=== PATIENT | male | born 1965 | race Caucasian/White ===

== ENCOUNTER 2019-05-28 10:29 | Observation (INO) | payer OTHER, SELFPAY ==
[2019-05-28] VITALS (7 sets, daily range): BP systolic 148–178; BP diastolic 86–111; PULSE 66–78; RESP 12–20; TEMP 36.8–36.9; O2SAT 96–99; BMI 35.5; BMI 34.9; BMI 35.0
--- NOTE | 2019-05-28 10:56 | CT_ITS ---
STUDY: CTA HEAD AND NECK WITH CONTRAST REASON FOR EXAM: Male, 53 years old. Vertigo nausea vomiting RADIATION DOSAGE (If Supplied By Facility): CTDIvol = ( 35.91 ) mGy, DLP = ( 1746.10 ) mGycm TECHNIQUE: CT angiography was performed with a multi-detector CT scanner. Data acquisition was obtained from the skull base through the vertex following intravenous administration of 100 IV Isovue 370. MIP images were reconstructed from the axial data set. Post-processing of the angiographic images was performed, with multiplanar reformation and 3D reconstruction. At the time of this study the venous structures are also enhancing which does cause some limitation to the study. Individualized dose optimization techniques were used for this CT. COMPARISON: No relevant priors. FINDINGS: Normal bilateral petrous carotid arteries. Normal right cavernous carotid artery with a normal supraclinoid bifurcation. There is calcified plaque formation of the left cavernous carotid artery, without a cross-sectional luminal stenosis. Normal right A1 segments of the anterior cerebral artery. Normal left A1 segments of the anterior cerebral artery. There is non-visualization of the anterior communicating artery (ACOM). Normal bilateral A2 segments of the anterior cerebral arteries. Normal right M1 and M2 segments of the middle cerebral arteries, with a normal M1 bifurcation. Normal left M1 and M2 segments of the middle cerebral arteries, with a normal M1 bifurcation. Normal right posterior communicating artery (PCOM). Normal left posterior communicating artery (PCOM). Normal bilateral vertebral arteries. There is a prominent confluence of the vertebral arteries. This measures up to 4.7 x 3.6 mm. Hhe visualized bilateral superior cerebellar (SCA) arteries are normal. Normal bilateral P1, P2 and visualized P3 segments of the posterior cerebral arteries. There is no demonstrated aneurysm of the [place]. There is no demonstrated abnormality of the visualized brain. AORTIC ARCH: Normal visualized aortic arch. Normal origins of the brachiocephalic, left common carotid, and left subclavian arteries. RIGHT CAROTID ARTERIES: Normal right common carotid artery (CCA). There is trace peripheral calcific plaque without stenosis. Normal origin of the right internal carotid (ICA) artery without a hemodynamically significant stenosis. Normal visualized cervical portion of the right internal carotid artery. Normal origin of the right external carotid artery (ECA). LEFT CAROTID ARTERIES: Normal left common carotid artery (CCA). There is trace peripheral plaque formation. Normal origin of the left internal carotid (ICA) artery without a hemodynamically significant stenosis. Normal visualized cervical portion of the left internal carotid artery. Normal origin of the left external carotid artery (ECA). VERTEBRAL ARTERIES: Normal bilateral vertebral arteries. The noncontrast CT portion of this exam shows no evidence of acute hemorrhage infarct or edema. There is minimal if any atrophy. There is a left side posterior parietal focus of superficial soft tissue mass with calcification which may represent a granuloma or partially calcified sebaceous cyst. There is one on the right measuring 1.2 x 0.9 cm. There is degenerative change in the cervical spine. There is facet arthropathy C2 C3 C3 C4 C4 C5 with mild to moderate neural foraminal narrowing. At the level of C5-C6 there is a broad disc osteophyte with moderate neural foramina narrowing moderate central stenosis. CT/CTA Head AND Neck W/ Contrast IMPRESSION: Nonspecific prominence of the confluence of the basilar artery. No evidence of acute hemorrhage infarct or edema. Consider follow-up MRI MRA when clinically appropriate. No visualized stenosis or otherwise visualized aneurysmal dilatation. There is minimal plaque formation within the cavernous carotid arteries without stenosis. There is minimal plaque formation within the bilateral carotid bulbs without stenosis. Multilevel degenerative change in the cervical spine. Electronically Signed: Magaly Escoto MD at 12:22 EDT Tel , Service support ,
--- NOTE | 2019-05-28 11:09 | ED.DCSUM_ITS ---
History of Present Illness Chief Complaint: Nausea/Vomiting Informant: Patient Onset: Days - 5 Context: Sudden Onset Timing: Intermittent Current Severity: Severe Maximum Severity: Severe Narrative: Patient is a 53-year-old male with history of high cholesterol presenting from home for vertigo. Patient states that he was getting out of the shower 2 hours prior to arrival when he suddenly felt that the room was spinning. He has associated nausea and sweats. Patient states at that time he started breathing very fast and started to have some numbness around his lips and in his hands. The symptoms have persisted so the patient came to the emergency room. Patient states he has had 5 episodes over the past week similar to this but not as severe and only lasting for a minute. He denies any change in his hearing or ringing in his ear. He also notes that for the past month he has been having some neck pain especially on the right side. He did see a chiropractor a couple days ago and had an adjustment. Patient currently has some tingling of his left fingers but denies any other complaints. He states moving his head makes his symptoms worse. He denies any history of heart attack or stroke. He denies any other complaints at this time. He has not taken anything at home for the symptoms. He denies any history of vertigo. He denies any recent upper respiratory infections. Past Medical History - Allergies and Home Meds Allergies/Adverse Reactions: Allergies Qqchdtp-Jrz-Abc Reductase Inhibitor Allergy (Verified 05/28/19 10:30) MUSCLE ACHES Primary Care Physician: Josue Farias MD [Primary Care Provider] - Surgical History: noncontributory Smoking Status: Never smoker - Family History Maternal Family History: Reports: No pertinent history Review of Systems All systems negative except as indicated Eyes: Denies: Visual changes - bilaterally Gastrointestinal: Reports: Nausea, Vomiting Musculoskeletal: Reports: Neck pain Neurological: Reports: Parasthesia - left hand, - - vertigo Physical Exam Vital Signs/Narrative: Vital Signs Temp Pulse Resp BP Pulse Ox 05/28/19 10:30 98.4 F 66 20 H 178/104 H 99 Inital Vital Signs reviewed: Yes General: Well nourished, Well developed, No Acute Distress, - - Diaphoretic Head: Normocephalic, Atraumatic Eyes: Perrl, EOMI, - - Bilateral fatiguing nystagmus with leftward gaze ENT: Moist mucous membranes, No rhinorrhea Neck: Supple, Nontender Cardiovascular: Regular rate, Regular rhythm, No murmurs Respiratory: No distress, CTA bilaterally, Chest nontender Abdomen: Soft, Nontender, Nondistended, Normal bowel sounds Back: Nontender, Normal Inspection Extremities: Nontender, No edema Skin: Normal color, No rash Neurological: Alert, Oriented x3, Cranial nerves II-XII grossly intact, Normal Strength, Normal Sensation, - - Normal qugf-yj-sdwi, normal coordination Psychological: Normal affect, Normal Mood Diagnostic/Tx/Re-eval Laboratory Results - last 24 hr 05/28/19 05/28/19 11:10 11:10 WBC 5.8 RBC 5.08 Hgb 15.2 Hct 44.5 MCV 87.6 MCH 29.9 MCHC 34.2 RDW Std Deviation 38.5 RDW Coeff of Nithya 11.9 Plt Count 175 MPV 9.9 Immature Gran % (Auto) 0.500 Neut % (Auto) 72.7 H Lymph % (Auto) 19.1 [place] % (Auto) 6.0 Eos % (Auto) 1.2 Baso % (Auto) 0.5 Absolute Neuts (auto) 4.2 Absolute Lymphs (auto) 1.11 Nucleated RBC % 0 Sodium 144 Potassium 3.7 Chloride 109 H Carbon Dioxide 24.0 Anion Gap 11 BUN 16 Creatinine 0.99 Estim Creat Clear Calc 96.40 Est GFR (MDRD) Af Amer 101 Est GFR (MDRD) Non-Af 84 BUN/Creatinine Ratio 16.2 Glucose 121 H Calcium 8.6 Diagnostic Data Head/Neck CTA 05/28/19 10:56 IMPRESSION: Nonspecific prominence of the confluence of the basilar artery. No evidence of acute hemorrhage infarct or edema. Consider follow-up MRI MRA when clinically appropriate. No visualized stenosis or otherwise visualized aneurysmal dilatation. There is minimal plaque formation within the cavernous carotid arteries without stenosis. There is minimal plaque formation within the bilateral carotid bulbs without stenosis. Multilevel degenerative change in the cervical spine. Electronically Signed: Magaly Escoto MD at 12:22 EDT Tel , Service support , - Rhythm Strip Rhythm Strip: Sinus Rhythm Rate: 65 Ectopy: None - EKG Initial EKG Interpretation: - - Normal sinus rhythm at a rate of 65 Incomplete right bundle branch block SD interval 202 QRS 160 QT/QTc 472/[address] segmen ts Interpreted by emergency medicine physician - Medical Decision Making Patient is evaluated for vertigo with associated nausea. His symptoms are quite severe. He does comment that he had some numbness in his left hand however this was also associated with breathing quickly and perioral numbness. I suspect that this was from hyperventilation. Patient is given IV Ativan as we do not have IV Valium. On reevaluation he does not have any significant improvement. He is unable to even sit up on the side of the bed. Patient did have recent manipulation of his C-spine from a chiropractor so a CTA of his head neck is obtained to rule out cerebrovascular injury. This is negative. Patient is redosed with oral Valium. On reevaluation he is slightly improved but still unable to walk secondary to his symptoms. Patient will require observation for intractable vertigo as he cannot perform his activities of daily living with his current symptoms. Patient is agreeable with this plan. Do not think this is central vertigo. At times his vision patient does not complain of a headache with some tension in nature, he is given a dose of IV Toradol. Patient accepted by Dr. Erickson for observation. ED Disposition - Plan for ED Patient: Disposition: Acute Care Hospital [facility] Diagnosis: Vertigo, peripheral Referrals: Josue Farias MD [Primary Care Provider] -
[2019-05-28] MEDS: 0.9% Normal Saline 1,000 ML 1000 ML IV (11:13)
[2019-05-28] MEDS: Ondansetron 4 MG/2 ML Vial IV ×2 (11:13→19:12)
[2019-05-28 11:16] LABS: Absolute Lymphocyte Count 1.11 X10^3/uL (0.83-4.51); Absolute Neutrophil Count 4.2 X10^3/uL (2.0-7.7); Basophil# 0.03 X10^3/uL; Basophil% 0.5 % (0-1); Eosinophil# 0.07 X10^3/uL; Eosinophils% 1.2 % (0-5); Hematocrit 44.5 % (40-54); Hemoglobin 15.2 g/dL (13.0-16.5); Lymphocyte # 1.11 X10^3/ul (4.0); Lymphocyte % 19.1 % (19-41); Mean Corp Hgb Conc 34.2 g/dL (32-36); Mean Corpuscular Hgb 29.9 pg (27.0-32.0); Mean Corpuscular Volume 87.6 fL (80-94); Mean Platelet Vol. 9.9 fl (6.2-12.0); Monocyte# 0.35 X10^3/uL; NRBC Flagged by Analyzer 0 % (0-5); Neutrophil # 4.21 X10^3/uL (2.7-7.7); Neutrophil % 72.7 % (47-70); Platelet Count 175 K/mm3 (150-450); RBC Distribution Width CV 11.9 % (11.6-14.6); RBC Distribution Width SD 38.5 fl (35.1-43.9); Red Blood Count 5.08 M/mm3 (4.6-6.2); White Blood Count 5.8 K/mm3 (4.4-11.0)
[2019-05-28 11:28] LABS: Anion Gap 11 (5-15); BUN 16 mg/dL (7-18); BUN/Creat Ratio 16.2 RATIO (10-20); Calcium,Total 8.6 mg/dL (8.5-10.1); Chloride 109 mmol/L (98-107); Creatinine, Serum 0.99 mg/dL (0.70-1.30); EST Glomerular Filtration Rate 84 mL/min (>60); Est Glom Filt Rate - Afr Amer 101 mL/min (>60); Glucose 121 mg/dL (74-106); Potassium 3.7 mmol/L (3.5-5.1); Sodium Level 144 mmol/L (136-145)
--- NOTE | 2019-05-28 11:50 | EKG12_ITS ---
Test Reason : DIZZINESS Blood Pressure : / mmHG Vent. Rate : 065 BPM Atrial Rate : 065 BPM P-R Int : 202 ms QRS Dur : 116 ms QT Int : 472 ms P-R-T Axes : 029 007 040 degrees QTc Int : 490 ms Normal sinus rhythm Incomplete right bundle branch block Prolonged QT Abnormal ECG Confirmed by FRANCIS GARCIA, JAYSON ([id number]), publishing editor LAMBERTO ROSAS ([id number]) on 05/30/2019 9:28:42 AM Referred By: CATHY Confirmed By:JAYSON BLANCO MD
[2019-05-28] MEDS: LORazepam 2 MG/ML Syringe IV (12:12)
[2019-05-28] MEDS: diazePAM 5 MG Tablet PO (14:15)
--- NOTE | 2019-05-28 15:34 | HP.PCM_ITS ---
Problem List (1) Vertigo, peripheral Status: Acute Qualifiers: Laterality: left Qualified Code(s): H81.392 - Other peripheral vertigo, left ear History of Present Illness Date of Admission: 05/28/19 Chief Complaint: dizziness The patient is a 53 year old M who is been intermittently dizzy over the past few weeks here with a change in position but stated last for short period of time and likely resolved. Today, patient was his normal state of health but then became acutely severely dizzy in a change position would make him feel even worse and would have associated nausea and vomiting. Patient is never had anything like this previously patient presented to the emergency room and received diazepam as well as lorazepam and still had symptoms. Patient underwent a CT angiogram of his head and neck that showed no acute process. Given the severity of his symptoms and unable to get up, the hospital service was contacted for admission. [] Past Medical History Medical History: Medical History (Last Updated 05/28/19 @ 15:36 by Baljit Erickson DO) Superficial vein thrombosis I82.890 Allergies Lwkdghr-Pie-Ulu Reductase Inhibitor Allergy (Verified 05/28/19 10:30) MUSCLE ACHES Home Medications: Ambulatory Orders Medication Instructions Recorded Aspirin [Aspirin, Baby] 81 mg PO DAILY@0800 05/28/19 Omeprazole [Prilosec] 20 mg PO DAILY 05/28/19 Surgical History: Surgical History (Last Updated 05/28/19 @ 15:36 by Baljit Erickson DO) Hx of appendectomy Z90.49 Surgical History: noncontributory Smoking Status: Never smoker Tobacco Use: Non-smoker Alcohol: Rare Drugs: Marijuana - occasional - *Family History Maternal History Items: No pertinent history, - - no CVA Review of Systems Constitutional: Denies: Anorexia, Chills, Fever, Night Sweats Eyes: Denies: Blurred vision, Double vision HEENT: Denies: Head Aches, Sinus Congestion, Sinus Drainage Cardiovascular: Denies: Chest Pain, Palpitations Respiratory: Denies: Cough, Shortness of breath at rest, Sputum production Gastrointestinal: Reports: Nausea, Vomiting. Denies: Abdominal Pain Genitourinary: Denies: Dysuria Musculoskeletal: Denies: Joint Pain, Joint Tenderness Skin: Denies: Rash, Wounds Neurological: Reports: Balance problems. Denies: Blurred vision, Double vision Psychiatric: Denies: Anxiety, Depression Endocrine: Denies: Change in Body Habitus, Heat/ Cold Intolerance Hematologic/ Lymphatic: Denies: Easy Bruising, Easy Bleeding, Hx of blood clot Comment: A 10 point review of systems were negative except as mentioned in the history of present illness and the other review of systems. VTE Information - Inpt Only VTE Present on Admission: No VTE Mechan Device Prophylaxis: None VTE Pharm Prophylaxis ordered?: No Reason prophylaxis not ordered:: Procedure Not Indicated Patient Problems: Active and Suspected Problems (Last Updated 05/28/19 @ 15:36 by Baljit Erickson DO) Vertigo, peripheral (Acute) - Physical Exam General: Alert, Cooperative, No apparent distress, Well developed, Well nourished HEENT: Atraumatic, PERRLA, EOMI, Normocephalic, - - left lateral nystagmus that fatigued Oral: Moist Mucosa, No Gingival or Mucosal Lesions/ Ulcerations Neck: No Nodes, Thyroid Normal Size and Texture Lungs: Clear to auscultation, Normal air movement, No rhonchi, No wheeze, No rales Cardiovascular: Regular rate, Regular Rhythm, Normal S1, Normal S2, No murmurs Abdomen: Bowel Sounds Present, Soft, Non Tender, Non-Distended, No Hepato- splenomegaly Extremities: No clubbing, No cyanosis Skin: No rashes, No breakdown Musculoskeletal: No Tenderness to Palpation of Joints or Extremities, No Muscle Wasting Neurological: Cranial nerves II-XII grossly intact, Motor Exam 5/5 strength throughout Psych/Mental Status: Normal Affect, Appropriate Vital Signs Temp Pulse Resp BP Pulse Ox 36.9 C 70 17 176/86 H 96 05/28/19 10:30 05/28/19 15:09 05/28/19 15:09 05/28/19 15:09 05/28/19 15:09 Oxygen Delivery Method Room Air Weight: 122.3 kg Body Mass Index (BMI) 35.5 Intake and Output for Last 24 Hours 05/26/19 05/27/19 05/28/19 23:59 23:59 23:59 Intake Total 1000 / 1000 Balance 1000 / 1000 Laboratory Tests Past 24 Hrs 05/28/19 05/28/19 11:10 11:10 WBC 5.8 RBC 5.08 Hgb 15.2 Hct 44.5 MCV 87.6 MCH 29.9 MCHC 34.2 RDW Std Deviation 38.5 RDW Coeff of Nithya 11.9 Plt Count 175 MPV 9.9 Immature Gran % (Auto) 0.500 Neut % (Auto) 72.7 H Lymph % (Auto) 19.1 [place] % (Auto) 6.0 Eos % (Auto) 1.2 Baso % (Auto) 0.5 Absolute Neuts (auto) 4.2 Absolute Lymphs (auto) 1.11 Nucleated RBC % 0 Sodium 144 Potassium 3.7 Chloride 109 H Carbon Dioxide 24.0 Anion Gap 11 BUN 16 Creatinine 0.99 Estim Creat Clear Calc 96.40 Est GFR (MDRD) Af Amer 101 Est GFR (MDRD) Non-Af 84 BUN/Creatinine Ratio 16.2 Glucose 121 H Calcium 8.6 EKG reviewed and showed normal sinus rhythm Clinical Impression(s) from Imaging Studies Head/Neck CTA 05/28/19 10:56 IMPRESSION: Nonspecific prominence of the confluence of the basilar artery. No evidence of acute hemorrhage infarct or edema. Consider follow-up MRI MRA when clinically appropriate. No visualized stenosis or otherwise visualized aneurysmal dilatation. There is minimal plaque formation within the cavernous carotid arteries without stenosis. There is minimal plaque formation within the bilateral carotid bulbs without stenosis. Multilevel degenerative change in the cervical spine. Electronically Signed: Magaly Escoto MD at 12:22 EDT Tel , Service support , Assessment/Plan All Active Problems (Last Updated 05/28/19 @ 15:36 by Baljit Erickson DO) Abdominal pain (Acute) Vertigo, peripheral (Acute) 1. Benign paroxysmal positional vertigo * Renata maneuver was attempted on the patient by myself and patient still has some dizziness. Given the severity of the patient's symptoms, patient will be brought in hospital under observation status started on meclizine and then just to have it as needed thereafter. Have physical therapy evaluate him for vestibular rehab. * Reassurance provided. 2. VTE prophylaxis: low risk as he is observation status and therefore, not indicated at this time 3. Advanced care planning: confirmed with patient: Full Code status. Code Visit OBSV E&M: [id number] Initial observation care L3
[2019-05-28] MEDS: Ketorolac 15 MG/ML Vial IV (15:45)
--- NOTE | 2019-05-28 15:51 | ED.RN ---
O2 2L applied due to the patient's SpO2 dropping to 88% on RA while sleeping.
[2019-05-28] MEDS: 0.9% Normal Saline 1,000 ML 150 ML IV (16:39)
[2019-05-28] MEDS: Meclizine HCl 25 MG Tablet PO (17:02)
--- NOTE | 2019-05-28 17:12 | NURSING ---
STATES TINGLING TO BILAT FINGERS EVERY MORNING THAT GOES AWAY WHEN UP & MOVING AROUND. STATES SLEEPS ON STOMACH W/HANDS UNDER PILLOW.
[2019-05-28] MEDS: Ibuprofen 400 MG Tablet PO (19:51)
[2019-05-29] VITALS (8 sets, daily range): BP systolic 129–155; BP diastolic 68–104; PULSE 65–75; RESP 14–18; TEMP 36.6–37.2; O2SAT 96–99
[2019-05-29] MEDS: Meclizine HCl 25 MG Tablet PO ×2 (07:25→15:59)
[2019-05-29] MEDS: Ondansetron 4 MG/2 ML Vial IV ×2 (08:33→17:38)
[2019-05-29] MEDS: 0.9% NaCl Peripheral Flush Adult/Peds IV ×2 (08:33→17:38)
--- NOTE | 2019-05-29 08:41 | MRI_ITS ---
STUDY: MRI BRAIN WITHOUT CONTRAST REASON FOR EXAM: Male, 53 years old. Vertigo TECHNIQUE: Standardized multiplanar fat and water weighted pulse sequences were obtained. COMPARISON: None. FINDINGS: Normal size of the ventricles and extra-axial spaces for the patient's age. Normal white matter tracts of the supratentorial brain. There is no evidence for recent intracranial ischemia or other cause of cytotoxic edema on diffusion weighted imaging (DWI). Normal bilateral basal ganglia. Normal thalami. There is no extra-axial fluid accumulation. Normal flow voids within the major intracranial circulation suggesting patency by spin echo criteria. Normal sella turcica, pituitary gland, infundibular stalk, optic chiasm and hypothalamus. Normal tectal plate and pineal gland. Normal midbrain, frances and medulla. Normal cerebellum. Normal basal cisterns. Normal bilateral temporal bones. Normal bilateral internal auditory canals. No demonstrated orbital abnormality, within the constraints of a routine brain study. Normal visualized paranasal sinuses. Normal calvarium and skull base. Normal visualized soft tissue structures. Normal visualized upper cervical spine. Multiple subcutaneous scalp nodules are hypointense on T2-weighted sequences. These probably represent sebaceous cysts. MRI/Brain without Contrast IMPRESSION: Normal unenhanced MRI of the brain. Electronically Signed: Curt Rogers MD at 20:57 EDT , Service support ,
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
[2019-05-29] MEDS: Pantoprazole Sodium 20 MG Tablet PO (10:40)
[2019-05-29] MEDS: Aspirin 81 MG TAB.CHEW PO (10:40)
--- NOTE | 2019-05-29 11:21 | MRI_ITS ---
STUDY: MRA NECK WITH AND WITHOUT CONTRAST REASON FOR EXAM: Male, 53 years old. Vertigo and dizziness x1 month TECHNIQUE: 3-D vugj-qq-owmomo (TOF) imaging was performed in an 1.5 T MRI scanner. 24 IV Dotarem was administered for the contrast enhanced images. Motion limited exam. COMPARISON: None. FINDINGS: RIGHT CAROTID ARTERIES: Normal right common carotid artery (CCA). Normal right common carotid bulb. Central signal loss is noted within the proximal ICA probably related to flow. Similar changes are noted in the distal ICA. Normal origin of the right external carotid artery (ECA). LEFT CAROTID ARTERIES: Normal left common carotid artery (CCA). Normal left common carotid bulb. Central signal loss is noted within the proximal ICA probably related to flow. Similar changes are noted in the distal ICA. Normal origin of the left external carotid artery (ECA). VERTEBRAL ARTERIES: Normal antegrade flow within the bilateral vertebral artery without a hemodynamically significant stenosis. MRI/MRA Neck WITH and W/O Contrast IMPRESSION: Central signal loss noted within the internal carotid arteries probably related to flow phenomenon. Motion limited exam. CTA would be more sensitive. Electronically Signed: Curt Rogers MD at 17:08 EDT , Service support ,
--- NOTE | 2019-05-29 11:21 | MRI_ITS ---
STUDY: MRA OF THE HEAD WITHOUT CONTRAST REASON FOR EXAM: Male, 53 years old. Vertigo TECHNIQUE: 3-D xmfi-eg-vrgfqn (TOF) imaging was performed with MIPs. The study was performed unenhanced. COMPARISON: CTA brain May 28, 2019 FINDINGS: Normal bilateral petrous carotid arteries. Normal right cavernous carotid artery with a normal supraclinoid bifurcation. Normal left cavernous carotid artery with a normal supraclinoid bifurcation. Normal right A1 segments of the anterior cerebral artery. Normal left A1 segments of the anterior cerebral artery. Normal intact anterior communicating artery (ACOM). Normal bilateral A2 segments of the anterior cerebral arteries. Normal right M1 and M2 segments of the middle cerebral arteries, with a normal M1 bifurcation. Normal left M1 and M2 segments of the middle cerebral arteries, with a normal M1 bifurcation. Normal right posterior communicating artery (PCOM). There is non-visualization of the left posterior communicating artery (PCOM). Normal bilateral vertebral arteries. Normal basilar artery with a normal basilar bifurcation. The visualized bilateral superior cerebellar (SCA) arteries are normal. Normal bilateral P1, P2 and visualized P3 segments of the posterior cerebral arteries. There is no demonstrated aneurysm of the [place]. There is no major vessel occlusion or hemodynamically significant stenosis. There is no demonstrated abnormality of the visualized brain. MRI/MRA Head ONLY without Contrast IMPRESSION: Normal MRA of the head Electronically Signed: Curt Rogers MD at 16:59 EDT , Service support ,
--- NOTE | 2019-05-29 11:29 | MRI_ITS ---
STUDY: MRI CERVICAL SPINE WITHOUT CONTRAST REASON FOR EXAM: Male, 53 years old. Vertigo TECHNIQUE: Standardized fat and water weighted pulse sequences were obtained in the sagittal and axial planes. COMPARISON: None FINDINGS: Normal foramen magnum and brainstem-cervical cord junction. Normal craniovertebral junction. Normal anterior atlantoaxial articulation. Normal odontoid process. Normal cervical lordosis. Normal vertebral bodies and posterior osseous elements. C2-3: Normal endplates. Normal disc height, signal and morphology. Normal central canal and intervertebral neural foramina. C3-4: Normal endplates. Normal disc height, signal and morphology. Normal central canal and moderate narrowing right intervertebral neural foramina. C4-5: Normal endplates. Normal disc height, signal and morphology. Normal central canal and mild bilateral narrowing intervertebral neural foramina. C5-6: Normal endplates. Normal disc height, signal and morphology. Normal central canal and severe bilateral narrowing intervertebral neural foramina. Broad-based posterior disc marginal osteophyte. C6-7: Normal endplates. Normal disc height, signal and morphology. Normal central canal and severe narrowing bilateral intervertebral neural foramina. C7-T1: Normal endplates. Normal disc height, signal and morphology. Normal central canal and moderate bilateral narrowing intervertebral neural foramina. Normal cervical cord. Normal visualized soft tissue structures. MRI/Spine Cervical (Routine) IMPRESSION: Multilevel neural foraminal narrowing due to uncinate spondylosis and degenerative disc disease Electronically Signed: Curt Rogers MD at 20:51 EDT , Service support ,
--- NOTE | 2019-05-29 11:47 | PCM.CONS.GEN ---
Problem List (1) Vertigo, peripheral Status: Acute Qualifiers: Laterality: left Qualified Code(s): H81.392 - Other peripheral vertigo, left ear Reason for Consult Date of Consultation: 05/29/19 Reason for Consultation: Vertigo History of Present Illness: The patient is a 53 year old M with PMH superficial vein thrombosis treated with dizziness. Per patient he has been having dizziness on and off for the last week or so but became worse since yesterday 05/28/2019, per patient he bent down yesterday while in the shower and since then has been having severe dizziness, room spinning sensation, nausea, vomiting, dizziness has been worse when he moves his head. Per patient he has a mild generalized headache. He denies any visual disturbances, speech disturbances, vision loss, temporal tenderness, jaw claudication, focal motor weakness, or sensory loss. Per patient's he does snore a lot at night and also has apneic episodes in the sleep. He has never been tested for sleep apnea. Patient does complain of neck pain and numbness in the hands which per patient has been chronic. He was found to have high systolic blood pressure greater than 170 mmHg on admission. CTA head/neck done on admission reported to show nonspecific prominence of the complaints of the basilar artery, no hemodynamically significant stenosis or occlusion, and to consider follow-up MRI/MRA when clinically appropriate. [] Past Medical History Medical History: Medical History (Last Updated 05/28/19 @ 15:36 by Baljit Erickson DO) Superficial vein thrombosis I82.890 Allergies Gqdkyhj-Wlk-Oci Reductase Inhibitor Allergy (Verified 05/28/19 10:30) MUSCLE ACHES Home Medications: Ambulatory Orders Medication Instructions Recorded Aspirin [Aspirin, Baby] 81 mg PO DAILY@0800 05/28/19 Methylcellulose [Fiber Therapy] 500 mg PO BID 05/28/19 Omeprazole [Prilosec] 20 mg PO DAILY 05/28/19 Meclizine HCl [Antivert] 25 mg PO 4X/DAY PRN PRN #60 tab 05/30/19 Surgical History: Surgical History (Last Updated 05/28/19 @ 15:36 by Baljit Erickson DO) Hx of appendectomy Z90.49 Surgical History: noncontributory Lives: Spouse/ Significant Other Smoking Status: Never smoker Tobacco Use: Non-smoker Alcohol: Rare Drugs: Marijuana - occasional - *Family History Maternal History Items: No pertinent history, - - no CVA Review of Systems Constitutional: Reports: - - Complete ROS negative except as documented in HPI Patient Problems: Active and Suspected Problems (Last Updated 05/28/19 @ 15:36 by Baljit Erickson DO) Vertigo, peripheral (Acute) - Physical Exam General: Alert HEENT: Normocephalic Neck: Supple Lungs: Normal air movement Cardiovascular: Normal S1, Normal S2 Abdomen: Bowel Sounds Present Extremities: No cyanosis Neurological: - - Consious, alert, CN II through XII grossly intact except bilateral gaze evoked nystagmus and intermittent vertical nystagmus, power 5 x 5 both upper and lower extremities, no sensory loss noted, no cerebellar signs, no NR, gait deferred, reflexes + B/L B/S/T/K/A Psych/Mental Status: Normal Affect Vital Signs Temp Pulse Resp BP Pulse Ox 98.0 F 67 16 147/102 H 97 05/29/19 07:49 05/29/19 08:29 05/29/19 08:29 05/29/19 08:29 05/29/19 08:29 Oxygen Flow Rate (L/min) 2 Oxygen Delivery Method Room Air Weight: 120.3 kg Body Mass Index (BMI) 34.9 Intake and Output for Last 24 Hours 05/27/19 05/28/19 05/29/19 23:59 23:59 23:59 Intake Total 2000 / 2300 300 / 300 Output Total 1700 / 1700 Balance 2000 / 1200 -1400 / -1400 Assessment/Plan All Active Problems (Last Updated 05/28/19 @ 15:36 by Baljit Erickson DO) Abdominal pain (Acute) Vertigo, peripheral (Acute) The patient is a 53 year old M with PMH superficial vein thrombosis treated with dizziness. Per patient he has been having dizziness on and off for the last week or so but became worse since yesterday 05/28/2019, per patient he bent down yesterday while in the shower and since then has been having severe dizziness, room spinning sensation, nausea, vomiting, dizziness has been worse when he moves his head. Per patient he has a mild generalized headache. He denies any visual disturbances, speech disturbances, vision loss, temporal tenderness, jaw claudication, focal motor weakness, or sensory loss. Per patient's he does snore a lot at night and also has apneic episodes in the sleep. He has never been tested for sleep apnea. Patient does complain of neck pain and numbness in the hands which per patient has been chronic. He was found to have high systolic blood pressure greater than 170 mmHg on admission. CTA head/neck done on admission reported to show nonspecific prominence of the complaints of the basilar artery, no hemodynamically significant stenosis or occlusion, and to consider follow-up MRI/MRA when clinically appropriate. Impression Vertigo likely peripheral etiology/BPPV Rule out CHARBEL Mild generalized headache-possibly secondary to high blood pressure Plan ?MRI brain with contrast. ?MRA head/neck ?MRI C-spine without contrast ?CTA head/neck-reported to show nonspecific prominence of the confluence of the basilar artery. No hemodynamically significant stenosis or occlusion. Consider follow-up MRI MRA when clinically appropriate ?Meclizine as needed ?ENT referral ?Vestibular therapy ?Polysomnography testing as outpatient. Will defer to PCP. ?Check ESR ?PT/OT/ST ?Fall precautions ?GI/DVT prophylaxis ?Further medical management per hospitalist team ?Follow-up with neurology as outpatient in 4-6 weeks ?Please call with questions if any ?Thank you for allowing us to participate in patient's care management This note has been generated using [employer] dictation software. It may contain incorrect words, spellings and punctuation's that were not noted in the review of the note prior to signing. Code Visit Inpatient E&M: 05019 Init Hosp L3
[2019-05-29 15:04] LABS: Erythrocyte Sedimentation Rate 4 mm/hr (0-20)
[2019-05-29] MEDS: Acetaminophen 325 MG Tablet 650 MG PO (15:59)
[2019-05-30 04:20] VITALS: BP 140/93; PULSE 61; RESP 16; TEMP 37; O2SAT 96
[2019-05-30] MEDS: Ibuprofen 400 MG Tablet PO (05:06)
[2019-05-30 09:00] VITALS: BP 137/96; BP 155/104; BP 169/103; PULSE 62; PULSE 73
[2019-05-30 09:04] VITALS: BP 137/96; PULSE 73; RESP 18; TEMP 37.2; O2SAT 100
[2019-05-30] MEDS: Pantoprazole Sodium 20 MG Tablet PO (09:08)
[2019-05-30] MEDS: Aspirin 81 MG TAB.CHEW PO (09:08)
[2019-05-30] MEDS: Meclizine HCl 25 MG Tablet PO (09:12)
--- NOTE | 2019-05-30 10:13 | DCINST_ITS ---
- Discharge Diagnoses Current Active Problems: Current Active and Chronic Problems (Last Updated 05/28/19 @ 15:36 by Baljit Erickson DO) Vertigo, peripheral (Acute) You will use the following diet at home:: Cardiac Your food should be the consistency of: Regular Your liquids should be the consistency of: Regular/Thin Discharge Activity: Return to Normal Activity Weight Bearing Status: Weight bearing as tolerated Call your doctor if you observe: Numbness or Tingling, Dizziness Instructions: Understanding Dizziness, Balance Problems, and Fainting, The Inner Ear: Understanding the Balance System, Inner Ear Problems: Causes of Dizziness (Vertigo), Managing Dizziness (Vertigo) with Medications, Managing Balance Problems: Vestibular Rehabilitation Therapy Additional Instructions: follow up with PT/OT for vestibular therapy Allergies/Adverse Reactions: Allergies Ntgadvp-Sjw-Cjr Reductase Inhibitor Allergy (Verified 05/28/19 10:30) MUSCLE ACHES Medications to take at Discharge Aspirin [Aspirin, Baby] 81 mg PO DAILY@0800 05/28/19 Methylcellulose [Fiber Therapy] 500 mg PO BID 05/28/19 Omeprazole [Prilosec] 20 mg PO DAILY 05/28/19 Meclizine HCl [Antivert] 25 mg PO 4X/DAY PRN PRN #60 tab 05/30/19 The following prescriptions were given: Meclizine HCl [Antivert] 25 mg PO 4X/DAY PRN PRN #60 tab PRN Reason: Vertigo Transmission Status: Pending to [facility] Primary Care Physician: Josue Farias MD [Primary Care Provider] - Please follow up with your Primary Care Physician in: one week Test Results: Test results from this visit will be discussed in further detail at your follow- up appointment, if applicable. Please Follow Up With: Curt Davies MD When: 1-2 weeks Proposed Discharge Date: 05/30/19
--- NOTE | 2019-05-30 10:15 | PCM.WORK.EX ---
Work/School Excuse Please excuse this person from:: Work From: 05/30/19 through: 06/06/19 Restrictions: No Heavy Lifting
--- NOTE | 2019-05-30 10:16 | DS.PCM_ITS ---
Discharge Date and Diagnosis - Problem List Patient Problems: Active and Suspected Problems (Last Updated 05/28/19 @ 15:36 by Baljit Erickson DO) Vertigo, peripheral (Acute) Date of Admission: 05/28/19 Date of Discharge: 05/30/19 - Primary Discharge Diagnosis Active and Suspected Problems (Last Updated 05/28/19 @ 15:36 by Baljit Erickson DO) Vertigo, peripheral (Acute) BPPV Hospital Course and Treatment Imaging Results: Diagnostic Data Head/Neck CTA 05/28/19 10:56 IMPRESSION: Nonspecific prominence of the confluence of the basilar artery. No evidence of acute hemorrhage infarct or edema. Consider follow-up MRI MRA when clinically appropriate. No visualized stenosis or otherwise visualized aneurysmal dilatation. There is minimal plaque formation within the cavernous carotid arteries without stenosis. There is minimal plaque formation within the bilateral carotid bulbs without stenosis. Multilevel degenerative change in the cervical spine. Electronically Signed: Magaly Escoto MD at 12:22 EDT Tel , Service support , Brain MRI 05/29/19 08:41 IMPRESSION: Normal unenhanced MRI of the brain. Electronically Signed: Curt Rogers MD at 20:57 EDT , Service support , Head MRA 05/29/19 11:21 IMPRESSION: Normal MRA of the head Electronically Signed: Curt Rogers MD at 16:59 EDT , Service support , Neck MRA 05/29/19 11:21 IMPRESSION: Central signal loss noted within the internal carotid arteries probably related to flow phenomenon. Motion limited exam. CTA would be more sensitive. Electronically Signed: Curt Rogers MD at 17:08 EDT , Service support , Cervical Spine MRI 05/29/19 11:29 IMPRESSION: Multilevel neural foraminal narrowing due to uncinate spondylosis and degenerative disc disease Electronically Signed: Curt Rogers MD at 20:51 EDT , Service support , neurology- Dr Gagnon Operations: None Procedures: None Summary of Care Provided: The patient is a 53 year old M with a past medical history of superficial vein thrombosis. He was admitted through the ED on 05/28/2019 with complaint of intermittent dizziness which have been going over the past few weeks prior to presentation. Dizziness was worsened with change in position and lasted a short while and resolved. On day of presentation, he had acute severe dizziness with change in position with assisted nausea and vomiting so he decided to come into the ED. CT angiogram of the head and neck showed no acute process. He was admitted and managed for acute vertigo. MRI of the brain done was unremarkable and he also had MRA of the head and neck which was unremarkable. Cervical spine MRI showed multilevel neuroforaminal narrowing due to uncinate spondylosis and the degenerative disc disease. Patient's dizziness improved after he was started on meclizine. Neurology was also consulted and evaluated patient and consensus was that it was likely due to BPPV. Patient remained stable and was discharged on 05/30/2019. He was discharged with a referral to physical therapy for vestibular therapy and also referred to ENT surgeon. Was also referred to a spine surgeon on account of the cervical spondylosis. He is to follow-up with his primary care doctor within 1 to 2 weeks. Patient seen and examined prior to discharge. He had no complaints. Dizziness had improved. Review of systems otherwise negative. Orthostatics checked was negative. o/e: Vital Signs Height 6 ft 1 in Weight: 265 lb 3.457 oz Weight in Pounds 265.2 lbs Pulse Ox 100 Temperature 99.0 F Pulse Rate [Standing] 73 Pulse Rate [Sitting] 73 Pulse Rate [Lying] 62 Pulse Rate 73 Respiratory Rate 18 Blood Pressure [Standing] 155/104 Blood Pressure [Sitting] 169/103 Blood Pressure [Lying] 137/96 Blood Pressure [BP] 146/84 Blood Pressure 137/96 Blood Pressure Position [BP] Right Lateral Blood Pressure Position Supine [] General: Alert, Oriented x3, Cooperative, No apparent distress HEENT: Atraumatic, PERRLA, EOMI, Normocephalic Oral: Dry Mucosa Neck: Supple, No JVD, Negative Carotid Bruits Lungs: Clear to auscultation, Normal air movement, No rhonchi, No wheeze, No rales Cardiovascular: Regular rate, Regular Rhythm, Normal S1, Normal S2, No murmurs Abdomen: Bowel Sounds Present, Soft, Non Tender, Non-Distended, No Hepato- splenomegaly Extremities: No clubbing, No cyanosis, No edema, Capillary Refill Less than 3 Seconds Skin: No rashes, No breakdown Musculoskeletal: No Tenderness to Palpation of Joints or Extremities Lymphatic: No Cervical, Supraclavicular, or Inguinal Adenopathy Neurological: Cranial nerves II-XII grossly intact, - horizontal nystagmus of both eyes had improved. Psych/Mental Status: Normal Affect, Appropriate, Alert and oriented to time, place, person, mood and affect He was also discharged with a prescription for work excuse duty for 1 week. Patient Problems: Active and Suspected Problems (Last Updated 05/28/19 @ 15:36 by Baljit Erickson DO) Vertigo, peripheral (Acute) - Physical Exam Vital Signs Temp Pulse Resp BP Pulse Ox 99.0 F 73 18 137/96 H 100 05/30/19 09:04 05/30/19 09:04 05/30/19 09:04 05/30/19 09:04 05/30/19 09:04 Oxygen Flow Rate (L/min) 2 Oxygen Delivery Method Room Air Weight: 265 lb 3.457 oz Body Mass Index (BMI) 34.9 Intake and Output for Last 24 Hours 05/28/19 05/29/19 05/30/19 23:59 23:59 23:59 Intake Total 2000 / 2300 1100 / 1400 450 / 450 Output Total 2675 / 3075 1100 / 1100 Balance 2000 / 1200 -1575 / -1675 -650 / -650 Laboratory Tests Past 24 Hrs 05/29/19 11:10 ESR 4 Discharge Diet: No Restrictions Discharge Activity: Return to Normal Activity Weight Bearing Status: Weight bearing as tolerated Call your doctor if you observe: Numbness or Tingling, Dizziness Home Medications: Medications to take at Discharge Aspirin [Aspirin, Baby] 81 mg PO DAILY@0800 05/28/19 Methylcellulose [Fiber Therapy] 500 mg PO BID 05/28/19 Omeprazole [Prilosec] 20 mg PO DAILY 05/28/19 Meclizine HCl [Antivert] 25 mg PO 4X/DAY PRN PRN #60 tab 05/30/19 Following Prescrptions Were Given to Patient: Meclizine HCl [Antivert] 25 mg PO 4X/DAY PRN PRN #60 tab PRN Reason: Vertigo Transmission Status: Received by [facility] Primary Care Physician: Josue Farias MD [Primary Care Provider] - Please follow up with your Primary Care Physician in: one week Please Follow Up With: Curt Davies MD When: 1-2 weeks Patient Instructions: Understanding Dizziness, Balance Problems, and Fainting, The Inner Ear: Understanding the Balance System, Inner Ear Problems: Causes of Dizziness (Vertigo), Managing Dizziness (Vertigo) with Medications, Managing Balance Problems: Vestibular Rehabilitation Therapy Disposition: Home Minutes spent on discharge:: 35 Patient Condition:: Stable Medical Necessity - Tobacco Use Smoking Status: Never smoker Tobacco Use: Non-smoker Meaningful Use Info Meaningful Use Diagnoses (Choose all that apply): None applicable Code Visit OBSV E&M: 11273 Observation care discharge
--- NOTE | 2019-05-30 10:48 | PN.NEURO_ITS ---
Patient Problems: Active and Suspected Problems (Last Updated 05/28/19 @ 15:36 by Baljit Erickson DO) Vertigo, peripheral (Acute) Subjective: No Issues overnight. MRI brain did not show any acute stroke. - Physical Exam General: Alert HEENT: Normocephalic Neck: Supple Lungs: Normal air movement Cardiovascular: Normal S1, Normal S2 Abdomen: Bowel Sounds Present Extremities: No cyanosis Neurological: - - Consious, alert, CN II through XII grossly intact except bilateral mild gaze evoked nystagmus and intermittent vertical nystagmus, power 5 x 5 both upper and lower extremities, no sensory loss noted, no cerebellar signs, no NR, gait deferred, reflexes + B/L B/S/T/K/A Psych/Mental Status: Normal Affect Vital Signs Temp Pulse Resp BP Pulse Ox 99.0 F 73 18 137/96 H 100 05/30/19 09:04 05/30/19 09:04 05/30/19 09:04 05/30/19 09:04 05/30/19 09:04 Oxygen Flow Rate (L/min) 2 Oxygen Delivery Method Room Air Weight: 120.3 kg Body Mass Index (BMI) 34.9 Intake and Output for Last 24 Hours 05/28/19 05/29/19 05/30/19 23:59 23:59 23:59 Intake Total 2000 / 2300 1100 / 1400 450 / 450 Output Total 2675 / 3075 1100 / 1100 Balance 2000 / 1200 -1575 / -1675 -650 / -650 Laboratory Tests Past 24 Hrs 05/29/19 11:10 ESR 4 Medical Necessity - Tobacco Use Smoking Status: Never smoker Tobacco Use: Non-smoker Assessment/Plan All Active Problems (Last Updated 05/28/19 @ 15:36 by Baljit Erickson DO) Abdominal pain (Acute) Vertigo, peripheral (Acute) The patient is a 53 year old M with PMH superficial vein thrombosis treated with dizziness. Per patient he has been having dizziness on and off for the last week or so but became worse since 05/28/2019, per patient he bent down yesterday while in the shower and since then has been having severe dizziness, room spinning sensation, nausea, vomiting, dizziness has been worse when he moves his head. Per patient he has a mild generalized headache. He denies any visual disturbances, speech disturbances, vision loss, temporal tenderness, jaw claudication, focal motor weakness, or sensory loss. Per patient's he does snore a lot at night and also has apneic episodes in the sleep. He has never been tested for sleep apnea. Patient does complain of neck pain and numbness in the hands which per patient has been chronic. He was found to have high systolic blood pressure greater than 170 mmHg on admission. CTA head/neck done on admission reported to show nonspecific prominence of the complaints of the basilar artery, no hemodynamically significant stenosis or occlusion, and to consider follow-up MRI/MRA when clinically appropriate. Impression Vertigo likely peripheral etiology/BPPV Rule out CHARBEL Mild generalized headache-possibly secondary to high blood pressure Plan ?MRI brain with contrast- no acute stroke ?MRA head/neck- no hemodynamically significant stenosis or occlusion ?MRI C-spine without contrast-Multilevel neural foraminal narrowing due to uncinate spondylosis and degenerative disc disease ?CTA head/neck-reported to show nonspecific prominence of the confluence of the basilar artery. No hemodynamically significant stenosis or occlusion. Consider follow-up MRI MRA when clinically appropriate ?Spine surgery consult ?Meclizine as needed ?ENT referral ?Vestibular therapy ?Polysomnography testing as outpatient. Will defer to PCP. ?Check ESR ?PT/OT/ST ?Fall precautions ?GI/DVT prophylaxis ?Further medical management per hospitalist team ?Follow-up with neurology as outpatient in 4-6 weeks ?Please call with questions if any ?Thank you for allowing us to participate in patient's care management This note has been generated using [employer] dictation software. It may contain incorrect words, spellings and punctuation's that were not noted in the review of the note prior to signing.
[2019-05-30] MEDS: Senna/Docusate Sodium 1 Tablet 2 TABLET PO (12:26)
[2019-05-30 15:00] VITALS: BP 148/99; PULSE 77; RESP 18; TEMP 36.8; O2SAT 99
== END 2019-05-30 15:50 | disposition home or self-care (01) ==
LOC: ED 15:13 → MS3 15:38
PROVIDERS: Psychiatry & Neurology Neurology; Emergency Provider Emergency Medicine; Family Provider Family Medicine; PCP Family Medicine; Visit Provider Student in an Organized Health Care Education/Training Program
DX: H81.399 Other peripheral vertigo, unspecified ear (principal); E78.00 Pure hypercholesterolemia, unspecified; Z79.899 Other long term (current) drug therapy; Z79.82 Long term (current) use of aspirin; R03.0 Elevated blood-pressure reading, without diagnosis of hypertension; M47.892 Other spondylosis, cervical region
CPT/HCPCS: 70496; 70498; 70544; 70549; 70551; 72141; 80048; 85025; 85652; 93005; 96361; 96374; 96375; 96376; 97116; 97161; 97530; 99218; 99285; A9575; J7030; Q9967; A4216; G0378; J2405

== ENCOUNTER → 2019-07-03 20:02 | Outpatient (CLI) | payer OTHER, SELFPAY ==
[2019-05-31 12:14] VITALS: BMI 35.5
== END ==
LOC: SL 20:03
PROVIDERS: Family Provider Family Medicine; PCP Family Medicine; Referring Provider Physician Assistant; Visit Provider Physician Assistant
DX: R06.81 Apnea, not elsewhere classified (principal); R06.83 Snoring; R53.83 Other fatigue
CPT/HCPCS: 95811

== ENCOUNTER 2019-07-19 18:30 | Outpatient (RCR) | payer OTHER, SELFPAY ==
[2019-05-31 12:14] VITALS: BMI 35.5
--- NOTE | 2019-06-02 15:17 | HP.PTEVAL ---
Patient's Visit Information ROYAL Deann WILSON is a 53 year old M referred to Physical Therapy by Curt Davies MD with a diagnosis of vestibular neuritis. Date of Evaluation: 06/02/19 Physical Therapist: MARCIN Ruby - Visit Plan Frequency: 1-2x /Week Duration: 2 Months Plan: 1-2X/ week for 6-8 weeks for progression of VOR exercises and habituation exercises, balance exercises with HEP - Subjective Findings: Pt reports that he woke up Wednesday and stepped out of the shower to dry his feet and he got room spinning dizzy. He sat on edge of bed for awhile and it would not go away. He was laying down with the fan spinning and he was so nauseated and sweating. they had to call the squad and his BP was hilda high. THey did all kind of tests in the ER and dx with vestibular neuritis. 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 He is getting better as today he was able to sit in the car with his eyes open. He has to walk looking straight ahead. He gets dizzy now if he turns to quick or turns his head too quick. He has been having headaches but thinks that is because his BP has been elevated. - Objective gait: walks with normal gait pattern. FGA: 13. Pt is able to walk on heels and toes without difficulty. Turning 180 degrees pt is off balance and does not move his head. Horizontal smooth pursuit: 60 sec, blurry, slight dizziness. Vertical smooth pursuit: 60 sec, blurry, slight dizziness. saccades: 60 seconds Blurry. VOR CX: slight dizzy and blurry - Balance Scores Functional Gait Assessment Score: 13 % Disability: 56.6700 - Goals Goal 1:: I HEP Goal Time Frame: 6-8 Weeks Goal 2:: Be able to walk with horizontal and vertical head turns without LOB or dizziness or veering Goal Time Frame: 6-8 Weeks Goal 3:: Increase FGA by 10 points to 22 or greater to decrease fall risk Goal Time Frame: 6-8 Weeks - Rehabilitation Potential Rehabilitation Potential: Good - Anticipated Interventions Patient/Client Instruction: Educate patient on: Condition, Plan of Care For the Purpose of:: To improve nutrient delivery to tissue, To improve muscle performance and motor function, To improve ability to perform ADL's, To increase tolerance to activity/condition/position, To improve performance and independence with ADL's, To decrease level of supervision to perform tasks, To improve ability of physical actions for home/community/work/leisure, To improve gait and locomotor functions, To improve balance, To improve safety with gait Therapeutic Exercise to Include: Strength training, Endurance training, Balance training, Coordination, Postural training, Gait and locomotor training For the Purpose of:: To improve muscle performance and motor function, To improve ability to perform ADL's, To increase tolerance to activity/condition/position, To improve performance and independence with ADL's, To decrease level of supervision to perform tasks, To improve ability of physical actions for home/community/work/leisure, To improve gait and locomotor functions Functional Training to Include: Gait training For the Purpose of:: To improve gait and locomotor functions Thank you for the opportunity to evaluate your patient. For Medicare and Medicare HMO plans, please review the plan of care and approve it. It will need to be FAXED BACK to us at [phone] for Medicare purposes. For Medicare only, by signing this I certify the plan of care. Please let me know if there are questions or concerns regarding this plan of care. Physician Signature: Date:
--- NOTE | 2019-07-19 18:53 | HP.PTDCSUM ---
HP - PT D/C Summary It has been my pleasure to treat N MAST under orders from Curt Davies MD, for the diagnosis of vestibular neuritis for a total of 11 visit(s). Discharge Date: 07/19/19 Please see the following information for a summary of their discharge status. 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 Pt reports that he gots his glasses and he does nto like them. He is now getting a cold. Pt reports that he was a little dizzy this morning but he thinks that it was brought on by cold medicine. 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 He feels that his eyes flutter from time to time. He has been trying to keep up with his exercises. He occ has some LOB if he jumps off the trailor and lands on one foot. 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 He feels that last week was a great week up until he started to get his cold. - Pain VALDES Pain Intensity (Out of 10): 0 B knee pain Pain Intensity (Out of 10): 5 - Overall Improvement % Improvement: 99 - Objective Objective/Function: FGA: 28. Gait: walks with slight limp due to knee pain. Pt walking with fast horizontal head turns today had slightest dizziness while doing it ( pt feels that it is related to his cold that he is fighting)...vertical he had no issue. Pt showed no signs of unsteadiness during the reassessment. - Goals Goal 1:: I HEP Goal Progress: Goal Met Goal 2:: Be able to walk with horizontal and vertical head turns without LOB or dizziness or veering Goal Progress: Progressing Goal 3:: Increase FGA by 10 points to 22 or greater to decrease fall risk Goal Progress: Goal Met - Plan Plan: DC PT to HEP - D/C Information Discharge Comments: DC PT to HEP If there are questions or concerns regarding this patient's physical therapy, please feel free to call me at [phone]. Thank you for the referral of this patient. Sincerely, Melia Johnson, MPT
== END 2019-07-19 19:00 | disposition home or self-care (01) ==
LOC: PT 18:30
PROVIDERS: Family Provider Family Medicine; PCP Family Medicine; Referring Provider Otolaryngology; Visit Provider Otolaryngology
DX: H93.3X9 Disorders of unspecified acoustic nerve (principal)
CPT/HCPCS: 97110; 97162; 97530

== ENCOUNTER → 2019-08-01 10:03 | Outpatient (CLI) | payer OTHER, SELFPAY ==
[2019-08-01 09:54] VITALS: BMI 34.9
--- NOTE | 2019-08-01 10:20 | RAD_ITS ---
STUDY: X-RAY - CERVICAL SPINE REASON FOR EXAM: Male, 54 years old. Pain TECHNIQUE: 4 view(s) of the cervical spine were obtained with flexion and extension. COMPARISON: None FINDINGS: Normal anterior atlantoaxial articulation. Normal odontoid process. Neutral view show straightening. Approximately 2.5 mm retrolisthesis of C5 on C6. Moderate degenerative disc disease at C5-C6. Significantly limited flexion especially extension. No subluxations. The soft tissue structures are unremarkable. There is no demonstrated fracture of the cervical spine. RAD/Cerv Spine 4 or 5 Views IMPRESSION: No acute abnormality. Degenerative disc disease at C5-C6. Significant limited range of motion. Electronically Signed: Anthony Villalpando MD at 19:22 EST , Service support ,
== END ==
PROVIDERS: Family Provider Family Medicine; PCP Family Medicine; Referring Provider Orthopaedic Surgery; Visit Provider Orthopaedic Surgery
DX: M50.322 Other cervical disc degeneration at C5-C6 level (principal)
CPT/HCPCS: 72050

== ENCOUNTER → 2019-08-04 12:44 | Outpatient (CLI) | payer OTHER, SELFPAY ==
[2019-05-31 12:14] VITALS: BMI 35.5
== END ==
PROVIDERS: Family Provider Family Medicine; PCP Family Medicine; Referring Provider Physician Assistant; Visit Provider Physician Assistant
DX: R69 Illness, unspecified (principal)

== ENCOUNTER → 2019-10-17 | Outpatient (CLI) | payer OTHER, SELFPAY ==
[2019-08-01 09:54] VITALS: BMI 34.9
--- NOTE | 2019-10-16 14:25 | IMM_PTH ---
PATIENT: ROYAL Deann WILSON LOC: [facility] U#:[id number] AGE/SX: 54/M ROOM: RE10/17/[address]: Dr. Javy Longoria MD : 1965 BED: DIS: 10/17/2019 SPEC #: [id number] RECD: 10/17/19 13:28 STATUS: JAMES REQ #: [id number] SIERRA: 10/16/19 14:[address]: Javy Longoria DEPT: IMMUNOHISTOCHEMISTRY RECD BY: Digna Sharma ENTERED: 10/17/19 13:29 SP TYPE: IMMUNO OTHR DR: Dr. Ramu Farias MD Tissues: A - Stomach, NOS Procedures: H Pylori (initial) PHYSICIAN & INSTITUTION [place] [id number] SPECIMEN INFORMATION: Tissue Source: A - Antral biopsy Clinical Info: Z12.11, K21.9 Specimen Number: [id number] CPT code: 69681 METHODOLOGY: Deparaffinized sections of prefer/formalin-fixed tissue or PAP/DQ stained slides are incubated with monoclonal/polyclonal antibodies/oligonucleotide probes. Localization is made via biotin free immunoperoxidase method. Appropriate controls are performed and reacted as expected. Results on target cell population are indicated in the following table: RESULTS: ANTIBODY / CLONE RESULT Block A H Pylori (polyclonal) negative These tests were developed and their performance characteristics determined by [facility]. They may not have been cleared or approved by the U.S. Food and Drug Administration. The FDA has determined that such clearance or approval is not necessary. INTERPRETATION: A. Antral biopsy: Negative for Helicobacter pylori organisms. SJ:scott 10/18/19
--- NOTE | 2019-10-17 | GASB_PTH ---
PATIENT: ROYAL Deann WILSON LOC: [facility] U#:[id number] AGE/SX: 54/M ROOM: RE10/17/[address]: Dr. Javy Longoria MD : 1965 BED: DIS: 10/17/2019 SPEC #: [id number] RECD: 10/17/19 13:25 STATUS: JAMES REJohana #: [id number] SIERRA: 10/17/19 00:[address]: Javy Longoria DEPT: SURGICAL PATHOLOGY RECD BY: Gonzales Solorzano ENTERED: 10/17/19 13:26 SP TYPE: Gastric Bx OT DR: Dr. Ramu Farias MD Tissues: A - Gastric mucous membrane B - Cecum, NOS Procedures: Surgery Specimen Level IV HEADER OPERATION: EGD with biopsy; colonoscopy with biopsy PRE-OP DIAGNOSIS: Z12.11, K21.9 TISSUE SUBMITTED: A - Antral biopsy H/H, B - Cecum polyp MICROSCOPIC DIAGNOSIS A. Antral biopsy: Mild gastritis. See microscopic description and comment. B. Cecum polyp, biopsy: Tubular adenoma. GILSON:scott 10/18/19 COMMENT A. The results of immunohistochemistry for Helicobacter pylori will be reported separately ([id number]). MICROSCOPIC DESCRIPTION Slides are reviewed. A. The specimen shows fragments of gastric mucosa with chronic inflammatory cell infiltrates in the lamina propria consisting of lymphocytes and plasma cells, consistent with mild chronic gastritis. GROSS DESCRIPTION A - Received in fixative is one container labeled with the patient's name and designated antral biopsy. The specimen consists of one irregular fragment of light gonsalves soft tissue that measures 0.4 x 0.4 x 0.1 cm. The specimen is totally submitted in one cassette. B - Received in fixative is one container labeled with the patient's name and designated cecum polyp. The specimen consists of one irregular fragment of light gonsalves soft tissue that measures 0.4 x 0.3 x 0.1 cm. The specimen is totally submitted in one cassette. / GILSON:scott 10/17/19 TC:1 [facility]: [id number] x2
== END | disposition home or self-care (01) ==
LOC: LABSPEC 13:24
PROVIDERS: PCP Family Medicine; Visit Provider Internal Medicine Gastroenterology
DX: Z12.11 Encounter for screening for malignant neoplasm of colon (principal); K21.9 Gastro-esophageal reflux disease without esophagitis
CPT/HCPCS: 88305; 88342

== ENCOUNTER 2021-10-03 19:07 | Emergency (ER) | payer OTHER, SELFPAY ==
[2021-10-03] VITALS (7 sets, daily range): BP systolic 152–163; BP diastolic 69–87; PULSE 79–100; RESP 16–20; TEMP 36.7–37.1; O2SAT 97–99; BMI 36.0
--- NOTE | 2021-10-03 19:52 | RAD_ITS ---
STUDY: X-RAY CHEST REASON FOR EXAM: Male, 56 years old. SOB TECHNIQUE: Frontal view COMPARISON: 10/03/2016 FINDINGS: The lungs are clear and expanded. There is no demonstrated pleural abnormality. Normal size heart. Normal mediastinum and elsie. Normal visualized pulmonary arteries. Normal visualized aortic arch and descending thoracic aorta. Normal visualized thoracic spine. Normal visualized ribs, clavicles, and shoulders. There is no demonstrated abnormality of the visualized soft tissue structures of the upper abdomen. RAD/Chest 1 View (Portable) IMPRESSION: Normal x-ray examination of the chest. Electronically Signed: Aries Guy DO at 20:04 EST Tel [phone], Service support ,
[2021-10-03 20:15] LABS: Absolute Lymphocyte Count 1.39 X10^3/uL (0.83-4.51); Basophil# 0.01 X10^3/uL; Basophil% 0.1 % (0-1); Eosinophil# 0.03 X10^3/uL; Eosinophils% 0.4 % (0-5); Hematocrit 44.8 % (40-54); Hemoglobin 15.5 g/dL (13.0-16.5); Lymphocyte # 1.39 X10^3/ul (0.83-4.51); Lymphocyte % 20.1 % (19-41); Mean Corp Hgb Conc 34.6 g/dL (32-36); Mean Corpuscular Hgb 29.3 pg (27.0-32.0); Mean Corpuscular Volume 84.7 fL (80-94); Mean Platelet Vol. 10.8 fl (6.2-12.0); Monocyte# 0.46 X10^3/uL; Monocyte% 6.7 % (0-10); NRBC Flagged by Analyzer 0 % (0-5); Neutrophil # 4.99 X10^3/uL (2.7-7.7); Neutrophil % 72.3 % (47-70); Platelet Count 192 K/mm3 (150-450); RBC Distribution Width CV 11.8 % (11.6-14.6); RBC Distribution Width SD 35.8 fl (35.1-43.9); Red Blood Count 5.29 M/mm3 (4.6-6.2); White Blood Count 6.9 K/mm3 (4.4-11.0)
[2021-10-03 20:29] LABS: AST(SGOT) 29 U/L (15-37); Alanine Aminotransfer ALT/SGPT 73 U/L (16-61); Albumin, Serum 3.9 g/dL (3.2-5.0); Alkaline Phosphatase 64 U/L (45-117); Anion Gap 5 (5-15); BUN 13 mg/dL (7-18); BUN/Creat Ratio 13.9 RATIO (10-20); Calcium,Total 9.6 mg/dL (8.5-10.1); Chloride 104 mmol/L (98-107); Creatinine, Serum 0.93 mg/dL (0.70-1.30); EST Glomerular Filtration Rate 89 mL/min (>60); Est Glom Filt Rate - Afr Amer 107 mL/min (>60); Estimated Creatinine Clearance 99.04 ml/min; Globulin 3.9 g/dL (2.2-4.2); Glucose 132 mg/dL (74-106); Potassium 3.3 mmol/L (3.5-5.1); Protein, Total 7.8 g/dL (6.4-8.2); Sodium Level 135 mmol/L (136-145)
--- NOTE | 2021-10-03 20:43 | ED.VIS.DYS ---
HPI History of Present Illness Chief Complaint: Shortness of Breath Informant: patient and spouse/S.O. Narrative Narrative: Patient is a 56-year-old male with history of prior pneumonia and GERD presenting with shortness of breath. Patient states he started having symptoms of fever on Wednesday of this week, 4 days ago. He is was seen at his PCP office and diagnosed with COVID with a positive swab those taken on Wednesday, 2 days ago. States he has had body aches and this morning started feel short of breath consistently and that he could not catch his breath. He feels like there is an elephant on his chest and his chest is tight. His doctor did call him in an inhaler and he used this afternoon which did improve his symptoms slightly. He has been having a lot of body aches including shoulder and neck pain. His notes that he has actually been having some upper respiratory symptoms since after . Patient denies any or GI symptoms. No other complaints at this time. Patient does have a history of superficial thrombus of his left thigh but no history of DVT or PE. [facility] Medical History Superficial vein thrombosis Home Medications aspirin 81 mg PO DAILY@0800 05/28/19 [History Last Taken 05/28/19] methylcellulose (laxative) 500 mg PO BID 05/28/19 [History Last Taken 05/28/19] omeprazole 20 mg PO DAILY 05/28/19 [History Last Taken 05/28/19] meclizine 25 mg PO 4X/DAY PRN PRN #60 tab 05/30/19 [Rx Last Taken Unknown] diazepam [Valium] 5 mg PO TID PRN 5 Days #15 tab 10/03/21 [Rx Last Taken Unknown] prednisone 40 mg PO DAILY #8 tab 10/03/21 [Rx Last Taken Unknown] Allergy/AdvReac Type Severity Reaction Status Date / Time Lngoiay-LVX-TfO Reductase Allergy MUSCLE Verified 10/03/21 19:10 Inhibitor ACHES [Wtoworv-Sdq-Irx Reductase Inhibitor] Surgical History Hx of appendectomy Social History Smoking Status: Never smoker ROS ROS ED Constitutional Constitutional ED: Reports chills and fever(s) Eyes Eyes: Denies change in vision ENT ENT ED: Reports rhinorrhea and sore throat Cardiovascular Cardiovascular: Reports chest pain; Denies palpitations Respiratory/Chest Respiratory/Chest: Reports cough, dyspnea and dyspnea on exertion Gastrointestinal Gastrointestinal: Denies abdominal pain, diarrhea or nausea Genitourinary Genitourinary ED: Denies dysuria Musculoskeletal Musculoskeletal: Reports back pain, myalgias and neck pain Integumentary Denies rash Neurologic Neurologic: Reports headache(s); Denies weakness Psychiatric Psychiatric: Denies anxiety or depression EXAM Physical Exam Const Vital Signs: 10/03/21 19:08 10/03/21 20:10 10/03/21 20:48 Temperature 98.3 F 98.8 F Temperature Source Temporal Temporal Pulse Rate 96 79 82 Respiratory Rate 20 H 19 H 16 Respiratory Effort Normal Non-Labored Respiratory Depth Normal Respiratory Pattern Normal Normal Blood Pressure 152/87 H 163/69 H Blood Pressure Mean 108 100 Pulse Ox 98 97 Oxygen Delivery Method Room Air Room Air 10/03/21 21:00 10/03/21 21:07 10/03/21 23:02 Temperature 98.1 F Temperature Source Temporal Pulse Rate 100 100 97 Respiratory Rate 20 H 19 H Respiratory Effort Respiratory Depth Respiratory Pattern Blood Pressure 156/86 H Blood Pressure Mean 109 Pulse Ox 99 99 Oxygen Delivery Method Room Air Positive well nourished and well developed General Appearance ED: well developed HEENT Reports TM's clear and moist mucous membranes Tympanic Membrane ED: Yes TM's clear Eyes PERRL and EOMs intact bilaterally Neck supple, no meningeal signs and no JVD Resp Effort and Inspection: other Coarse breath sounds Auscultation: diminished lung sounds bilateral lower Cardio regular rate, regular rhythm and no murmurs GI non-tender and non-distended Auscultation: normoactive bowel sounds Palpation: soft Back/Spine Negative for normal to inspection Extremity normal to inspection General Extremety ED: Negative for edema or tenderness General Extremity: Negative for edema Neuro oriented x3 Sensorium / Orientation: alert Motor Exam: strength 5/5 throughout Psych mental status grossly normal Skin Lesions: no lesions Rashes: no rashes MDM MDM MDM Narrative Medical decision making narrative: Patient evaluated chest tightness. He is recently diagnosed with COVID-19 pneumonia is having associated myalgias. He has a hard time taking a big breath. He has been referred for monoclonal antibiotics. Patient is not hypoxic and his ambulate in the ER without any hypoxic events. Looks uncomfortable but no acute distress. He has coarse breath sounds are diminished at the bases. He felt that albuterol inhaler is helping at home so he was given a DuoNeb. He does have improvement with this. He has good air movement. Will be treated like reactive airway exacerbation with steroids and inhaler use at home. No signs of secondary pneumonia. His D-dimer is normal patient is otherwise low risk for PE. I do not think he needs a CTA at this time. Chest x-ray does not show any acute process. EKG does not show any acute ischemic changes. High sensitivity troponin is normal. I do think he stable for outpatient follow-up and does not require admission or further testing at this time. Patient is agreeable this plan of care. He is complaining of significant muscle skeletal neck pain. He is not have any meningeal signs. He is given a dose of Valium and a prescription for this at home to help with his symptoms. Lab Data Attestation: I reviewed the patient's lab results. Labs: Laboratory Results - last 24 hr 10/03/21 10/03/21 10/03/21 19:20 19:20 19:20 WBC 6.9 RBC 5.29 Hgb 15.5 Hct 44.8 MCV 84.7 MCH 29.3 MCHC 34.6 RDW Std Deviation 35.8 RDW Coeff of Nithya 11.8 Plt Count 192 MPV 10.8 Immature Gran % (Auto) 0.400 Neut % (Auto) 72.3 H Lymph % (Auto) 20.1 Monroe % (Auto) 6.7 Eos % (Auto) 0.4 Baso % (Auto) 0.1 Absolute Neuts (auto) 5.0 Absolute Lymphs (auto) 1.39 Nucleated RBC % 0 D-Dimer Quant (PE/DVT) 0.29 Sodium 135 L Potassium 3.3 L Chloride 104 Carbon Dioxide 26.0 Anion Gap 5 BUN 13 Creatinine 0.93 Estim Creat Clear Calc 99.04 Est GFR (MDRD) Af Amer 107 Est GFR (MDRD) Non-Af 89 BUN/Creatinine Ratio 13.9 Glucose 132 H Calcium 9.6 Total Bilirubin 1.00 AST 29 ALT 73 H Alkaline Phosphatase 64 Troponin I High Sens Total Protein 7.8 Albumin 3.9 Globulin 3.9 Albumin/Globulin Ratio 1.0 10/03/21 19:20 WBC RBC Hgb Hct MCV MCH MCHC RDW Std Deviation RDW Coeff of Nithya Plt Count MPV Immature Gran % (Auto) Neut % (Auto) Lymph % (Auto) Monroe % (Auto) Eos % (Auto) Baso % (Auto) Absolute Neuts (auto) Absolute Lymphs (auto) Nucleated RBC % D-Dimer Quant (PE/DVT) Sodium Potassium Chloride Carbon Dioxide Anion Gap BUN Creatinine Estim Creat Clear Calc Est GFR (MDRD) Af Amer Est GFR (MDRD) Non-Af BUN/Creatinine Ratio Glucose Calcium Total Bilirubin AST ALT Alkaline Phosphatase Troponin I High Sens 6 Total Protein Albumin Globulin Albumin/Globulin Ratio Radiography Chest X-Ray - ED: 1 View, Read by ED Physician, Read by Radiologist and No Acute Disease Diagnostic Testing: Clinical Impression(s) from Imaging Studies Chest X-Ray 10/03/21 19:52 IMPRESSION: Normal x-ray examination of the chest. Electronically Signed: Aries Guy DO at 20:04 EST Tel [phone], Service support , Rhythm Strip Rhythm Strip: Sinus Rhythm Rate: 84 Ectopy: None EKG Initial EKG: Attestation: I personally reviewed and interpreted this EKG as follows: Interpretation: Sinus Rhythm Comments: Normal sinus rhythm rate of 84 Normal axis Normal intervals Normal ST segments Discharge Plan Triage Chief Complaint: Shortness of Breath ED Provider: Janna Loera Dx/Rx/DC Orders Clinical Impression: Chest tightness, COVID-19, Mild reactive airways disease, Myalgia Instructions: Coronavirus Disease 2019 (COVID-19): Caring for Yourself or Others, ED Chest Pain, Noncardiac Prescriptions: New diazepam [Valium] 5 mg tablet 5 mg PO TID PRN (Reason: muscle spasm) 5 Days Qty: 15 RF: 0 prednisone 20 mg tablet 40 mg PO DAILY Qty: 8 RF: 0 No Action omeprazole 20 MG capsule 20 mg PO DAILY RF: 0 aspirin 81 MG tablet,chewable 81 mg PO DAILY@0800 RF: 0 methylcellulose (laxative) 500 MG tablet 500 mg PO BID RF: 0 meclizine 25 MG tablet 25 mg PO 4X/DAY PRN PRN (Reason: Vertigo) Qty: 60 RF: 0 Primary Care Provider: Dm Sanches NP Referrals: Dm Sanches NP, [employer] [Primary Care Provider] - Activity Restrictions/Additional Instructions: Use inhaler as prescribed. Return if oxygen is below 90% or breathing feels worse. Disposition Disposition: Home, Self Care Discharge Date/Time: 10/03/21 23:04
[2021-10-03] MEDS: Ipratropium/Albuterol Sulfate 3 ML AMPUL.NEB INHALATION (20:48)
[2021-10-03 21:07] LABS: Troponin-I HS 6 pg/mL (3.0-78.0)
[2021-10-03 21:10] LABS: D-Dimer Quantitative (DVT/PE) 0.29 FEU/ug/m (0.27-0.49)
--- NOTE | 2021-10-03 22:42 | EKG12_ITS ---
Test Reason : DYSRHYTHMIA Blood Pressure : / mmHG Vent. Rate : 084 BPM Atrial Rate : 084 BPM P-R Int : 204 ms QRS Dur : 114 ms QT Int : 396 ms P-R-T Axes : 042 -09 043 degrees QTc Int : 467 ms Normal sinus rhythm Normal ECG Confirmed by YOLA GARCIA, KAHLIL ([id number]), staff editor LAMBERTO ROSAS ([id number]) on 10/06/2021 11:10:36 AM Referred By: JOSY Confirmed By:KAHLIL ACEVES MD
[2021-10-03] MEDS: diazePAM 5 MG Tablet PO (22:55)
[2021-10-03] MEDS: predniSONE 20 MG Tablet 60 MG PO (22:55)
== END 2021-10-03 23:04 | disposition home or self-care (01) ==
PROVIDERS: Emergency Medicine; Emergency Provider Emergency Medicine; PCP Nurse Practitioner Family; Visit Provider Emergency Medicine
DX: U07.1 COVID-19 (principal); R07.89 Other chest pain; J12.82 Pneumonia due to coronavirus disease 2019; M79.10 Myalgia, unspecified site; J45.20 Mild intermittent asthma, uncomplicated
CPT/HCPCS: 71045; 80053; 84484; 85025; 85379; 93005; 94640; 99283; A4216